=== PATIENT | male | born 1945 | race Caucasian/White ===

== ENCOUNTER 2017-02-13 19:38 | Inpatient (IN) | payer MEDICARE, BC ==
[~2017-02-13] VITALS: Ht 175.3 cm; Wt 104.3 kg
[2017-02-13 20:31] LABS: BASOPHILS 0 % (0-2); EOSINOPHILS 0 % (0-7); HEMOGLOBIN 14.8 g/dL (13.5-17.5); IMMATURE GRANULOCYTES 0.3 % (0-5); LYMPHOCYTES 1.5 % (15-50); MCHC 34.4 g/dL (31.0-37.0); MCV 92.9 fL (80.0-100.0); MEAN PLATELET VOLUME 9.6 fL (7.4-10.4); MONOCYTES 0.8 % (2-11); NEUTROPHILS 97.4 % (40-80); PLATELET COUNT 106 10x3/uL (130-400); RBC 4.63 10x6/uL (4.20-6.10); RDW 13.3 % (11.5-14.5)
[2017-02-13 20:55] LABS: ALBUMIN 3.8 g/dL (3.4-5.0); ANION GAP 17.9 mmol/L (8-16); BILIRUBIN - TOTAL 0.77 mg/dL (0.2-1.3); CARBON DIOXIDE 22.2 mmol/L (21.0-32.0); CREATININE - SERUM 1.3 mg/dL (0.6-1.3); POTASSIUM - SERUM 4.1 mmol/L (3.5-5.1); PROTEIN - SERUM 7.7 g/dL (6.4-8.2)
[2017-02-13 21:14] LABS: APPEARANCE CLEAR (CLEAR); BILIRUBIN NEGATIVE (NEGATIVE); COLOR YELLOW (YELLOW); GLUCOSE NEGATIVE (NEGATIVE); KETONE NEGATIVE (NEGATIVE); NITRITE NEGATIVE (NEGATIVE); PROTEIN TRACE mg/dL (NEGATIVE); SPECIFIC GRAVITY 1.025 (1.005-1.020); UROBILINOGEN NORMAL (NORMAL)
[2017-02-13 21:16] LABS: BACTERIA FEW /hpf (NONE SEEN); RED CELLS - URINE 0-5 /hpf (0-5); WHITE CELLS - URINE 0-5 /hpf (0-5)
[2017-02-14 04:00] VITALS: BP 115/75
[2017-02-14 04:36] VITALS: BP 115/75; BMI 34.0
[2017-02-14] MEDS ORDERED: PRAVACHOL80 MG PO (05:55)
[2017-02-14] MEDS ORDERED: MOBIC7.5 MG PO (05:56)
[2017-02-14] MEDS ORDERED: COZAAR100 MG PO (05:56)
[2017-02-14] MEDS ORDERED: NEURONTIN600 MG PO (05:57)
[2017-02-14] MEDS ORDERED: BAYER CHEWABLE81 MG PO (05:58)
[2017-02-14] MEDS ORDERED: LOMOTIL TABLET1 TAB PO (05:59)
[2017-02-14] MEDS ORDERED: HYTRIN1 MG PO (06:00)
[2017-02-14] MEDS ORDERED: BACTRIM DS TABL1 TAB PO (06:02)
[2017-02-14] MEDS ORDERED: NORCO 7.5/325 T1 TA1 PO (06:02)
[2017-02-14 08:08] LABS: BASOPHILS 0 % (0-2); EOSINOPHILS 0 % (0-7); HEMOGLOBIN 13.3 g/dL (13.5-17.5); IMMATURE GRANULOCYTES 0.5 % (0-5); LYMPHOCYTES 2.3 % (15-50); MCH 31.4 pg (26.0-34.0); MCHC 34.1 g/dL (31.0-37.0); MEAN PLATELET VOLUME 9.3 fL (7.4-10.4); MONOCYTES 2.8 % (2-11); NEUTROPHILS 94.4 % (40-80); RBC 4.24 10x6/uL (4.20-6.10); RDW 13.5 % (11.5-14.5)
[2017-02-14 08:09] LABS: PLATELET COUNT 84 10x3/uL (130-400); WBC 6.5 10x3/uL (4.8-10.8)
[2017-02-14 08:13] LABS: ANION GAP 14.8 mmol/L (8-16); CALCIUM 8.1 mg/dL (8.5-10.1); CREATININE - SERUM 1.2 mg/dL (0.6-1.3); POTASSIUM - SERUM 3.8 mmol/L (3.5-5.1)
[2017-02-14 08:36] LABS: PLATELET ESTIMATE DECREASED
[2017-02-14 10:10] VITALS: BP 106/47
[2017-02-14 13:39] VITALS: BP 102/41
[2017-02-14 14:51] VITALS: Ht 175.3 cm; Wt 104.3 kg
[2017-02-14 16:51] VITALS: BP 100/48
--- NOTE | 2017-02-14 18:55 | NUR ---
PATIENT IN BED WITH IV INTACT. EYES CLOSED RESTING QUIETLY. FAMILY AT BEDSIDE. CALL LIGHT WITHIN REACH.
[2017-02-14 20:00] VITALS: BP 132/62
[2017-02-15] VITALS: BP 103/50; BP 156/76
[2017-02-15 04:00] VITALS: BP 140/62
[2017-02-15 05:10] LABS: BASOPHILS 0 % (0-2); EOSINOPHILS 0 % (0-7); HEMATOCRIT 37.8 % (42.0-54.0); HEMOGLOBIN 12.5 g/dL (13.5-17.5); IMMATURE GRANULOCYTES 0.2 % (0-5); LYMPHOCYTES 9.7 % (15-50); MCH 31.3 pg (26.0-34.0); MCHC 33.1 g/dL (31.0-37.0); MEAN PLATELET VOLUME 10.4 fL (7.4-10.4); MONOCYTES 6.5 % (2-11); NEUTROPHILS 83.6 % (40-80); PLATELET COUNT 85 10x3/uL (130-400); RDW 13.6 % (11.5-14.5)
[2017-02-15 05:26] LABS: MCV 94.5 fL (80.0-100.0); WBC 4.1 10x3/uL (4.8-10.8)
[2017-02-15 05:36] LABS: ANION GAP 13.7 mmol/L (8-16); BILIRUBIN - TOTAL 0.7 mg/dL (0.2-1.3); CALCIUM 7.6 mg/dL (8.5-10.1); CARBON DIOXIDE 22.1 mmol/L (21.0-32.0); CREATININE - SERUM 1.1 mg/dL (0.6-1.3); POTASSIUM - SERUM 3.8 mmol/L (3.5-5.1); PROTEIN - SERUM 5.9 g/dL (6.4-8.2)
[2017-02-15 05:40] LABS: ALBUMIN 2.6 g/dL (3.4-5.0)
--- NOTE | 2017-02-15 05:53 | NUR ---
PT RESTING QUIETLY, EYES CLOSED. GAVE [place]CO TWICE FOR HEADACHE PAIN. COMPLETE ASSESSMENT PER FLOW-SHEET. AT BEDSIDE. WILL CONTINUE TO MONITOR.
--- NOTE | 2017-02-15 07:00 | NUR ---
REPORT RECIEVED ASSUMED CARE. PATIENT IN BED WITH IV INTACT. NO COMPLAINTS. CALL LIGHT WITHIN REACH.
--- NOTE | 2017-02-15 07:00 | NUR ---
REPORT RECIEVED ASSUMED CARE. PATIENT IN BED WITH IV INTACT. NO COMPLAINTS AT THIS TIME. CALL LIGHT WITHIN REACH.
[2017-02-15 08:31] VITALS: BP 127/69
--- NOTE | 2017-02-15 08:45 | NUR ---
ASSESSMENT COMPLETE, VS STABLE. NO COMPLAINTS AT THIS TIME. IV INTACT. CALL LIGHT WITHIN REACH. FAMILY AT BEDSIDE.
[2017-02-15 11:47] VITALS: BP 141/69
--- NOTE | 2017-02-15 13:00 | NUR ---
PATIENT SITTING UP IN CHAIR. NO COMPLAINTS OR SIGNS OF DISTRESS. CALL LIGHT WITHIN REACH.
[2017-02-15 15:51] VITALS: BP 145/69
--- NOTE | 2017-02-15 19:07 | NUR ---
PATIENTI N BED WITH NO COMPLAINT OF PAIN. IV INTACT. RECIEVED PAIN MEDS. FAMILY AT BEDSIDE,. CALL LIGHT WITHIN REACH.
[2017-02-15 20:00] VITALS: BP 134/59; BP 156/76
[2017-02-16] VITALS: BP 134/59
--- NOTE | 2017-02-16 03:16 | NUR ---
PT RESTING QUIETLY, EYES CLOSED. RESP EASY, UNLABORED. NO DISTRESS NOTED. AT BEDSIDE.
[2017-02-16 04:00] VITALS: BP 157/74
[2017-02-16 04:21] LABS: BASOPHILS 0.3 % (0-2); EOSINOPHILS 2.3 % (0-7); HEMATOCRIT 38.6 % (42.0-54.0); HEMOGLOBIN 12.9 g/dL (13.5-17.5); IMMATURE GRANULOCYTES 0.6 % (0-5); LYMPHOCYTES 25.2 % (15-50); MCH 31.5 pg (26.0-34.0); MCHC 33.4 g/dL (31.0-37.0); MCV 94.1 fL (80.0-100.0); MEAN PLATELET VOLUME 10.4 fL (7.4-10.4); MONOCYTES 10.2 % (2-11); NEUTROPHILS 61.4 % (40-80); PLATELET COUNT 92 10x3/uL (130-400); RDW 13.6 % (11.5-14.5); WBC 3.5 10x3/uL (4.8-10.8)
[2017-02-16 04:56] LABS: ALBUMIN 2.6 g/dL (3.4-5.0); ALKALINE PHOSPHATASE 75 U/L (46-116); BILIRUBIN - TOTAL 0.45 mg/dL (0.2-1.3); CARBON DIOXIDE 23.1 mmol/L (21.0-32.0); CHLORIDE - SERUM 107 mmol/L (98-107); CREATININE - SERUM 0.9 mg/dL (0.6-1.3); GLUCOSE 107 mg/dL (74-106); POTASSIUM - SERUM 3.6 mmol/L (3.5-5.1); PROTEIN - SERUM 6.1 g/dL (6.4-8.2); SODIUM 140 mmol/L (136-145); eGFR NON AFRICAN AMERICAN 88 mL/min (90-120)
[2017-02-16 04:57] LABS: ALT (SGPT) 38 U/L (10-68); CALC OSMOLALITY 277 mosm/kg (275-300); UREA NITROGEN 10 mg/dL (7-18)
[2017-02-16 08:38] VITALS: BP 159/73
--- NOTE | 2017-02-16 10:55 | NUR ---
PT NOTE-PT STATES NO PAIN OR BURNING WHEN URINATING. STATES ANTIBIOTICS HAVE HELPED. HAS BEEN UP IN ROOM. HOPING FOR DISCHARGE IN AM. CALL LIGHT INREACH
[2017-02-16 12:38] VITALS: BP 144/68
--- NOTE | 2017-02-16 15:06 | NUR ---
NUTRITION F/U CHART REVIEWED, PT VISIT. TOLERATING REG DIET. 75 TO 100% INTAKE RECENT MEALS. RD FOLLOWING
--- NOTE | 2017-02-16 16:18 | NUR ---
PT UP IN HALLWAY WALKING NO PROBLEMS WILL MONITER
--- NOTE | 2017-02-16 20:00 | NUR ---
PATIENT RESTING IN BED WITH AT BEDSIDE. PATIENT HAS PAIN IN NECK, HOWEVER, REFUSED PAIN MEDS AT THIS TIME. I OFFERED THE PATIENT A HEAT PACK FOR HIS AND HE AGREED. PATIENT DENIES OTHER NEEDS AT THIS TIME. BED IN LOWEST POSITION AND CALL LIGHT WITHIN REACH. ENCOURAGED THE PATIENT TO CALL IF HE HAS OTHER NEEDS.
[2017-02-16 23:25] VITALS: BP 161/71
[2017-02-17 01:52] VITALS: BP 141/58
[2017-02-17 04:46] VITALS: BP 144/74
[2017-02-17 05:23] LABS: BASOPHILS 0.4 % (0-2); EOSINOPHILS 2.2 % (0-7); HEMATOCRIT 38.9 % (42.0-54.0); HEMOGLOBIN 13.2 g/dL (13.5-17.5); IMMATURE GRANULOCYTES 0.4 % (0-5); LYMPHOCYTES 28.9 % (15-50); MCH 31.4 pg (26.0-34.0); MCHC 33.9 g/dL (31.0-37.0); MCV 92.4 fL (80.0-100.0); MEAN PLATELET VOLUME 9.8 fL (7.4-10.4); MONOCYTES 12.5 % (2-11); NEUTROPHILS 55.6 % (40-80); PLATELET COUNT 99 10x3/uL (130-400); RBC 4.21 10x6/uL (4.20-6.10); RDW 13.3 % (11.5-14.5)
[2017-02-17 05:31] LABS: WBC 4.5 10x3/uL (4.8-10.8)
[2017-02-17 05:38] LABS: CALC OSMOLALITY 276 mosm/kg (275-300); CALCIUM 8.3 mg/dL (8.5-10.1); CARBON DIOXIDE 23.4 mmol/L (21.0-32.0); CHLORIDE - SERUM 105 mmol/L (98-107); GLUCOSE 108 mg/dL (74-106); POTASSIUM - SERUM 3.3 mmol/L (3.5-5.1); SODIUM 139 mmol/L (136-145); UREA NITROGEN 8 mg/dL (7-18); eGFR NON AFRICAN AMERICAN 78 mL/min (90-120)
[2017-02-17] MEDS ORDERED: CIPRO500 MG PO (06:46)
--- NOTE | 2017-02-17 08:20 | NUR ---
CM NOTE: PATIENT IS DISCHARGING HOME TODAY WITH NO NEEDS. REFUSED HOME HEALTH. IS DRIVING HIM HOME. IMM SERVED
--- NOTE | 2017-02-17 08:28 | NUR ---
FINISH EAT BREAKFAST.
[2017-02-17 08:42] VITALS: BP 169/80
--- NOTE | 2017-02-17 09:05 | NUR ---
PT STATES HE IS SO EXCITED DISCHARGE TODAY.
--- NOTE | 2017-02-17 10:05 | NUR ---
DICHARGE INSTRUCTION FOR PT AND HOSPITAL STAFF TAKE PT TO THE CAR VIA WHEELCHAIR.
== END 2017-02-17 11:11 | disposition home or self-care (01) | DRG 728 ==
LOC: D.ER 19:38 → D.MS 02-14 03:21
PROVIDERS: Family Medicine; ADMIT Family Medicine
DX: N41.0 Acute prostatitis (principal); B96.89 Other specified bacterial agents as the cause of diseases classified elsewhere; N40.1 Benign prostatic hyperplasia with lower urinary tract symptoms; R35.0 Frequency of micturition; R35.1 Nocturia; R39.15 Urgency of urination; R39.12 Poor urinary stream

== ENCOUNTER → 2017-05-29 11:25 | Outpatient (CLI) | payer MEDICARE, BC ==
[2017-02-14 14:51] VITALS: BMI 33.9
[~2017-05-29 11:25] MED LIST: BACTRIM DS TABL1 TAB PO; BAYER CHEWABLE81 MG PO; CIPRO500 MG PO; COZAAR100 MG PO; HYTRIN1 MG PO; LOMOTIL TABLET1 TAB PO; MOBIC7.5 MG PO; NEURONTIN600 MG PO; NORCO 7.5/325 T1 TA1 PO; PRAVACHOL80 MG PO
== END | disposition home or self-care (01) ==
LOC: D.LAB 11:25
DX: Z12.5 Encounter for screening for malignant neoplasm of prostate (principal)

== ENCOUNTER 2018-03-08 17:12 | Emergency (ER) | payer MEDICARE, BC | END 2018-03-08 18:23 | disposition home or self-care (01) | LOC: D.ER 17:12 | DX: S01.20XA Unspecified open wound of nose, initial encounter (principal); W18.31XA Fall on same level due to stepping on an object, initial encounter; Y93.89 Activity, other specified; Y92.019 Unspecified place in single-family (private) house as the place of occurrence of the external cause; I10 Essential (primary) hypertension; K21.9 Gastro-esophageal reflux disease without esophagitis; N42.9 Disorder of prostate, unspecified; Z85.828 Personal history of other malignant neoplasm of skin ==